=== PATIENT | male | born 1995 | race Two or more races ===

== ENCOUNTER 2021-01-22 19:57 | Emergency (ER) | payer OTHER ==
[~2021-01-22] VITALS: Ht 180.3 cm; Wt 79.8 kg
--- NOTE | 2021-01-22 22:25 | PHYS DOC ---
General Adult EDM: Chief Complaint: BLOODY STOOL HPI: HPI: "" I ve had two episodes of bright red blood in my stool.. It just got me worried tonight.. " " This has happen before..." Patient is a 25 year old male who presents with above hx and complaints bright red blood in stool. There is some history of recent hard stools. Patient has a picture of stool with bright red blood. Patient has had 2 episodes in the last couple days. No history of colitis. Has never had a colonoscopic exam. Recently has been discharged . Patient has no family history of colitis. Patient normally healthy. No other health issues. Patient not taking excessive inflammatory drugs. No history of coagulopathy. No history of rectal instrumentation and/or rectal sex. Review of Systems: Review of Systems: Constitutional: Denies fever or chills Eyes: Denies change in visual acuity HENT: Denies nasal congestion or sore throat Respiratory: Denies cough or shortness of breath Cardiovascular: Denies chest pain or edema GI: Denies abdominal pain, nausea, vomiting, diarrhea . Complains of bloody stools or : Denies dysuria Musculoskeletal: Denies back pain or joint pain Integument: Denies rash Neurologic: Denies headache, focal weakness or sensory changes Endocrine: Denies polyuria or polydipsia Lymphatic: Denies swollen glands Psychiatric: Denies depression or anxiety Family History: Family History: Noncontributory Current Medications: Current Meds: See nursing for home meds Allergies: Allergies: Allergies Coded Allergies Type Severity Reaction Last Updated Verified No Known Drug Allergies 01/22/21 No Physical Exam: PE: Constitutional: Well developed, well nourished, no acute distress, non-toxic appearance. [] HENT: Normocephalic, atraumatic, bilateral external ears normal, oropharynx moist, no oral exudates, nose normal. [] Eyes: PERRLA, EOMI, conjunctiva normal, no discharge. [] Neck: Normal range of motion, no tenderness, supple, no stridor. [] Cardiovascular:Heart rate regular rhythm, no murmur [] Lungs & Thorax: Bilateral breath sounds clear to auscultation [] Abdomen: Bowel sounds normal, soft, no tenderness, no masses, no pulsatile masses. [] Rectal exam does show a small rectal fissure. There is some bright blood at this location. Skin: Warm, dry, no erythema, no rash. [] Back: No tenderness, no CVA tenderness. [] Extremities: No tenderness, no cyanosis, no clubbing, ROM intact, no edema. [] Neurologic: Alert and oriented X 3, normal motor function, normal sensory function, no focal deficits noted. [] Psychologic: Affect anxious, judgement normal, mood normal. [] EKG: EKG: [] Radiology/Procedures: Radiology/Procedures: Patient denies radiograph evaluation at this time [] Impressions: Patient declines labs at this time. Heart Score: C/O Chest Pain: N/A Risk Factors: Risk Factors: DM, Current or recent (<one month) smoker, HTN, HLP, family history of CAD, obesity. Risk Scores: Score 0 - 3: 2.5% MACE over next 6 weeks - Discharge Home Score 4 - 6: 20.3% MACE over next 6 weeks - Admit for Clinical Observation Score 7 - 10: 72.7% MACE over next 6 weeks - Early Invasive Strategies Course & Med Decision Making: Course & Med Decision Making Pertinent Labs and Imaging studies reviewed. (See chart for details) Patient avoid constipation. Patient encouraged to schedule colostomy to evaluate other sources of rectal bleeding beside the rectal fissure. May have internal hemorrhoids, polyps, diverticulitis, colitis etc. Recommend this follow-up is important because other source of rectal bleeding are important. Impression: 1. Outlet bleeding [] Dragon Disclaimer: Dragon Disclaimer: This electronic medical record was generated, in whole or in part, using a voice recognition dictation system. Departure Departure: Referrals: PCP,UNKNOWN (PCP) Scripts Hydrocortisone Acetate (ANUSOL-HC) 25 Mg Supp.rect 1 SUPP RC BID for hemorrhoid/out let bleeding for 7 Days, #30 SUPP 0 Refills Prov: ANDREW GONZALEZ MD 01/22/21 [place] Disclaimer This chart was dictated in whole or in part using Voice Recognition software in a busy, high-work load, and often noisy Emergency Department environment. It may contain unintended and wholly unrecognized errors or omissions. Dragon Disclaimer This chart was dictated in whole or in part using Voice Recognition software in a busy, high-work load, and often noisy Emergency Department environment. It may contain unintended and wholly unrecognized errors or omissions. ANDREW GONZALEZ MD Jan 22, 2021 22:25
[2021-01-22] MEDS ORDERED: HYDR25SU18 RC (23:30)
[2021-01-22 23:45] VITALS: BP 122/78
== END 2021-01-22 23:48 | disposition home or self-care (01) ==
LOC: ER 19:57
DX: K62.5 Hemorrhage of anus and rectum (principal); K60.2 Anal fissure, unspecified
CPT/HCPCS: 99283